=== PATIENT | male | born 1975 | race Caucasian/White ===

== ENCOUNTER 2020-03-29 14:50 | Emergency (ER) | payer BC ==
[2020-03-29] MEDS ORDERED: KETOROLAC 30 MG/ML 1ML VIAL As Ordered ONE (18:58)
[2020-03-29] MEDS ORDERED: KETOROLAC 30 MG/ML 1ML VIAL ONE (18:58)
[2020-05-05 16:09] LABS: APPEARANCE, URINE CLEAR (CLEAR); BACTERIA, URINE AUTO NEGATIVE (NEGATIVE); BILIRUBIN, URINE AUTO NEGATIVE (NEGATIVE); BLOOD, URINE BLOOD NEGATIVE (NEGATIVE); COLOR, URINE STRAW (YELLOW); GLUCOSE, URINE (UA) AUTO NEGATIVE (NEGATIVE); KETONE, URINE AUTO NEGATIVE (NEGATIVE); LEUKOCYTE ESTERASE, URINE AUTO NEGATIVE (NEGATIVE); MUCUS, URINE SMALL (NEGATIVE); NITRITE, URINE AUTO NEGATIVE (NEGATIVE); PROTEIN, URINE AUTO NEGATIVE (NEGATIVE); RBC, URINE AUTO 1 /HPF (0-3); SPECIFIC GRAVITY URINE AUTO 1.013 (1.002-1.035); SQUAMOUS EPITHELIAL CELL UR AU 0 /HPF (0-6); UROBILINOGEN, URINE AUTO 0.2 mg/dL (0.0-2.0); WBC, URINE AUTO 0 /HPF (0-3)
[2020-05-05 17:08] LABS: BASO % 0.3 % (0.0-1.0); EOS % 0.1 % (0.0-3.0); HEMATOCRIT 42.3 % (42.0-52.0); HEMOGLOBIN 14.2 g/dl (13.5-17.5); LYMPH # 0.5 10^3/uL (1.5-5.0); MEAN CORPUSCULAR HEMOGLOBIN 28.9 pg (27.0-33.0); MEAN CORPUSCULAR HGB CONC 33.6 g/dl (32.0-36.5); MEAN CORPUSCULAR VOLUME 86.2 fl (80.0-96.0); MONO # 0.3 10^3/uL (0.0-0.8); MONO % 3.3 % (0.0-5.0); NEUTROPHILS # 8.4 10^3/uL (1.5-8.5); NEUTROPHILS % 90.8 % (36.0-66.0); PLATELET COUNT, AUTOMATED 176 10^3/uL (150-450); RED BLOOD COUNT 4.91 10^6/uL (4.30-6.10); WHITE BLOOD COUNT 9.2 10^3/uL (4.0-10.0)
[2020-06-08 12:10] LABS: ALBUMIN 4.2 GM/DL (3.2-5.2); ALT/SGPT 43 U/L (12-78); BILIRUBIN,DIRECT 0.2 MG/DL (0.0-0.2); BILIRUBIN,TOTAL 0.6 MG/DL (0.2-1.0); BLOOD UREA NITROGEN 12 MG/DL (7-18); CALCIUM LEVEL 8.8 MG/DL (8.5-10.1); CARBON DIOXIDE LEVEL 30 MEQ/L (21-32); CHLORIDE LEVEL 107 MEQ/L (98-107); CREATININE FOR GFR 0.94 MG/DL (0.70-1.30); GLOMERULAR FILTRATION RATE > 60.0 (>60); GLUCOSE, FASTING 106 MG/DL (70-100); LIPASE 65 U/L (73-393); POTASSIUM SERUM 4.4 MEQ/L (3.5-5.1); SODIUM LEVEL 140 MEQ/L (136-145); TOTAL PROTEIN 7.1 GM/DL (6.4-8.2)
== END 2020-03-29 19:51 | disposition home or self-care (01) ==
LOC: M ED 14:50
DX: N13.39 Other hydronephrosis (principal); N20.0 Calculus of kidney; K21.9 Gastro-esophageal reflux disease without esophagitis; K44.9 Diaphragmatic hernia without obstruction or gangrene; A60.02 Herpesviral infection of other male genital organs; Z79.899 Other long term (current) drug therapy
CPT/HCPCS: 74176; 80048; 80076; 81001; 83690; 85025; 87086; 96361; 96374; 99283; J1885

== ENCOUNTER 2020-08-21 16:32 | Day surgery (SDC) | payer BC, SELFPAY ==
[~2020-08-21] VITALS: Ht 167.6 cm; Wt 88.0 kg
[2020-08-21] MEDS ORDERED: FISH1000 PO (16:41)
[2020-08-21] MEDS ORDERED: VALA500T5 PO (16:41)
[2020-08-21] MEDS ORDERED: LISI10TA4 PO (16:41)
[2020-08-21] MEDS ORDERED: NS 1,000 ML IV ONE (17:00)
[2020-08-21] MEDS ORDERED: MORPHINE 4 MG/ML 1ML VIAL/SYRINGE (J2270) IV ONE (17:00)
[2020-08-21 17:25] LABS: BASO % 0.3 % (0.0-1.0); EOS % 0.3 % (0.0-3.0); HEMOGLOBIN 14.6 g/dl (13.5-17.5); MEAN CORPUSCULAR HEMOGLOBIN 27.9 pg (27.0-33.0); MEAN CORPUSCULAR HGB CONC 32.4 g/dl (32.0-36.5); MEAN CORPUSCULAR VOLUME 85.9 fl (80.0-96.0); MONO # 0.7 10^3/uL (0.0-0.8); MONO % 6.5 % (0.0-5.0); NEUTROPHILS # 9.1 10^3/uL (1.5-8.5); NEUTROPHILS % 82.8 % (36.0-66.0); PLATELET COUNT, AUTOMATED 198 10^3/uL (150-450); RED BLOOD COUNT 5.24 10^6/uL (4.30-6.10)
[2020-08-21 17:36] LABS: ALBUMIN 4.4 GM/DL (3.2-5.2); ALT/SGPT 52 U/L (12-78); BILIRUBIN,DIRECT 0.1 MG/DL (0.0-0.2); BILIRUBIN,TOTAL 0.3 MG/DL (0.2-1.0); BLOOD UREA NITROGEN 19 MG/DL (7-18); CALCIUM LEVEL 8.8 MG/DL (8.5-10.1); CARBON DIOXIDE LEVEL 30 MEQ/L (21-32); CHLORIDE LEVEL 105 MEQ/L (98-107); CREATININE FOR GFR 0.85 MG/DL (0.70-1.30); GLOMERULAR FILTRATION RATE > 60.0 (>60); GLUCOSE, FASTING 105 MG/DL (70-100); LIPASE 72 U/L (73-393); SODIUM LEVEL 139 MEQ/L (136-145)
[2020-08-21] MEDS ORDERED: ISOVUE-370 76% 100ML VIAL As Ordered ONE (17:52)
--- NOTE | 2020-08-21 18:47 | REPVR ---
PROCEDURE INFORMATION: Exam: CT Abdomen And Pelvis With Contrast Exam date and time: 08/21/2020 6:00 PM Age: 45 years old Clinical indication: Abdominal pain; Additional info: Rlq abd pain TECHNIQUE: Imaging protocol: Computed tomography of the abdomen and pelvis with intravenous contrast. Radiation optimization: All CT scans at this facility use at least one of these dose optimization techniques: automated exposure control; mA and/or kV adjustment per patient size (includes targeted exams where dose is matched to clinical indication); or iterative reconstruction. Contrast material: ISO 370; Contrast volume: 100 ml; Contrast route: INTRAVENOUS (IV); COMPARISON: CT ABD PELVIS W/O CONTRAST 03/29/2020 4:26 PM FINDINGS: Liver: Normal. No mass. Gallbladder and bile ducts: Normal. No calcified stones. No ductal dilation. Pancreas: Normal. No ductal dilation. Spleen: Normal. No splenomegaly. Adrenal glands: Normal. No mass. Kidneys and ureters: Normal. No hydronephrosis. Stomach and bowel: Unremarkable. No obstruction. No mucosal thickening. Appendix: Appendix measures 9 mm with periappendiceal fat stranding. No fluid collections/abscess. Intraperitoneal space: Unremarkable. No free air. No significant fluid collection. Vasculature: Unremarkable. No abdominal aortic aneurysm. Lymph nodes: Unremarkable. No enlarged lymph nodes. Urinary bladder: Unremarkable as visualized. Reproductive: Unremarkable as visualized. Bones/joints: Unremarkable. No acute fracture. Soft tissues: Unremarkable. IMPRESSION: Acute appendicitis. No fluid collections/abscess. Electronically signed by: Renny Roman On 08/21/2020 18:47:22 PM
[2020-08-21] MEDS ORDERED: PIPERACILLIN/TAZOBACTAM SOD 3.375 GM in D5W MINI-BAG PLUS 50 ML IV ONE (19:00)
--- NOTE | 2020-08-21 19:41 | HPEPDOC ---
General Surgery H&P Date of Admission Aug 21, 2020 Attending Physician: DESI HEATH MD History and Physical CHIEF COMPLAINT: abdominal pain HISTORY OF PRESENT ILLNESS: Patient is a 45 M who presents to the ER this afternoon with one day history of lower abdominal pain. Patient reports that he felt well when he woke up this morning. Pain started roughly about a 13 the morning. He describes it as crampy associated bloating with no nausea or vomiting, diarrhea, fevers or chills. He thought this was just gas pain and infiltrated wait it out while at work. Pain did not subside and got mildly worse. He reports pain about 7 out of 10. After work he went to the emergency room. ALLERGIES: Please see below. HOME MEDICATIONS: Please see below. PAST MEDICAL HISTORY: 1. hypertension. 2. hyperlipidemia. PAST SURGICAL HISTORY: 1. hernia repair. - open repair with mesh PERSONAL/SOCIAL HISTORY: [Denies smoking, alcohol use, or recreational drug use]. REVIEW OF SYSTEMS: GENERAL: [Denies chills, fatigue, fever, weight gain and weight loss]. HEENT: Denies vision problems, hearing problems. NECK: [Denies any neck pain]. CARDIOVASCULAR: [Denies chest pain and palpitations]. MUSCULOSKELETAL: [Denies arthralgias, back pain and thrombophlebitis]. SKIN: [Denies rash]. NEUROLOGIC: [Denies headache, stroke and transient ischemic attack]. PSYCHIATRIC: [Denies anxiety and depression]. ENDOCRINE: [Denies thyroid disease]. HEMATOLOGY/ONCOLOGY: [Denies any bleeding or clotting disorder]. HEART: [Denies any chest pains, palpitations, paroxysmal dyspnea, orthopnea]. PULMONARY: [Denies chronic cough, dyspnea and wheezing]. GASTROINTESTINAL: [Denies rectal bleeding, family history of colon cancer, constipation, diarrhea, dysphagia, heartburn and jaundice]. GENITOURINARY: [Denies dysuria, frequency, hematuria and nocturia]. ENDOCRINE: [Denies polydipsia, polyphagia, polyuria, heat or cold intolerance]. INFECTIOUS: [Denies any recent upper respiratory tract infection, UTI, need for use of antibiotics]. NUTRITION: [Reports good appetite]. PHYSICAL EXAMINATION: VITAL SIGNS: Please see below. GENERAL APPEARANCE: Patient seen sitting up on the stretcher, relatively comfortable. [Awake, alert, oriented]. HEENT: [Normocephalic, atraumatic. [place] palpebral conjunctivae. Anicteric sclerae. Lips mildly dry]. CHEST: [No chest wall abnormalities. Normal respiratory motion/effort]. NECK: [Supple. No thyromegaly. No lymphadenopathies]. LUNGS: [Lung sounds are clear to auscultation bilaterally. No wheezing appreciated]. HEART: [No chest wall abnormalities. Heart rate and rhythm are regular with no murmurs]. ABDOMEN: Obese abdomen, minimally distended, soft. Mild tenderness over the right lower quadrant area with localized guarding, mild rebound. SKIN: Warm and dry. EXTREMITIES: [Extremities have no deformities. No edema identified]. NEUROLOGICAL: Awake, alert and oriented. ANCILLARIES: . LABORATORY DATA: Please see below. MICROBIOLOGY: Please see below. IMAGING: CT scan of the abdomen and pelvis shows dilated, inflamed appendix with mild periappendiceal stranding, no free fluid, no free air. IMPRESSION AND PLAN: Acute appendicitis with localized peritonitis Patient's history, symptoms, physical exam consistent with non-complicated appendicitis. His imaging shows mild appendiceal thickening not much phlegmon or signs of abscess formation. We'll bring him to the operating room for laparoscopic appendectomy. I explained to him how the procedure is performed, its risks and benefits. I discussed with the patient the details of the proposed procedure, the benefits of performing the procedure, the most common risks on doing the procedure. This may include risks of the general anesthesia, risk of bleeding, bowel injury, vascular injury, subsequent abscess formation, hernia formation. I have given him a chance to ask questions, voice out concerns. Patient has agreed to proceed. He received a dose of Zosyn 3.3 cm pounds heavy during his stay in the emergency room. We may need to continued this perioperatively depending on the state of the appendix once we are in the operating room. Vital Signs Vital Signs Date Time Temp Pulse Resp B/P (MAP) Pulse Ox O2 Delivery O2 Flow Rate FiO2 08/21/20 17:32 16 08/21/20 17:07 08/21/20 16:33 97.4 76 98 Room Air Laboratory Data Labs 24H Laboratory Tests 2 08/21/20 17:00: Immature Granulocyte % (Auto) 1.1, Neutrophils (%) (Auto) 82.8H, Lymphocytes (%) (Auto) 9.0L, Monocytes (%) (Auto) 6.5H, Eosinophils (%) (Auto) 0.3, Basophils (%) (Auto) 0.3, Neutrophils # (Auto) 9.1H, Lymphocytes # (Auto) 1.0L, Monocytes # (Auto) 0.7, Eosinophils # (Auto) 0.0, Basophils # (Auto) 0.0, Nucleated Red Blood Cells % (auto) 0.0, Urine Color YELLOW, Urine Appearance CLOUDYH, Urine pH 8.0, Urine Specific [place] 1.020, Urine Protein NEGATIVE, Urine Glucose (UA) NEGATIVE, Urine Ketones NEGATIVE, Urine Blood NEGATIVE, Urine Nitrite NEGATIVE, Urine Bilirubin NEGATIVE, Urine Urobilinogen 0.2, Urine Leukocyte Esterase NEGATIVE, Urine WBC (Auto) 0, Urine RBC (Auto) 3, Urine Hyaline Casts (Auto) 0, Urine Bacteria (Auto) NEGATIVE, Urine Squamous Epithelial Cells 0, Urine Amorphous Sediment SMALLH, Urine Mucus (Auto) SMALL, Urine Sperm (Auto) , Anion Gap 4L, Glomerular Filtration Rate > 60.0, Calcium Level 8.8, Total Bilirubin 0.3, Direct Bilirubin 0.1, Aspartate Amino Transf (AST/SGOT) 28, Alanine Aminotransferase (ALT/SGPT) 52, Alkaline Phosphatase 85, Total Protein 8.0, Albumin 4.4, Albumin/Globulin Ratio 1.2, Lipase 72L 08/21/20 19:21: CBC/BMP Laboratory Tests 08/21/20 17:00 Home Medications Scheduled Lisinopril (Lisinopril) 10 Mg Tablet, 10 MG PO DAILY, (Reported) Haskell-3 Fatty Acids/Fish Oil (Fish Oil 1,000 mg Capsule) 1 Each Capsule, 1,000 MG PO DAILY, (Reported) Valacyclovir HCl (Valacyclovir) 500 Mg Tablet, 500 MG PO DAILY, (Reported) Allergies Coded Allergies: No Known Allergies (Unverified , 08/21/20) A-FIB/CHADSVASC A-FIB History Current/History of A-Fib/PAF?: No Current PO Anticoag Therapy: DESI Maria MD Aug 21, 2020 19:41
[2020-08-21] MEDS ORDERED: propofoL 200 MG/20 ML VIAL As Ordered ONE ×2 (21:07→22:34)
[2020-08-21] MEDS ORDERED: dexameTHASONE 4 MG/ML 1ML VIAL (J1100 PER 1MG) As Ordered ONE (21:07)
[2020-08-21] MEDS ORDERED: fentaNYL 100 MCG/2 ML INJECTION (J3010) As Ordered ONE ×2 (21:07→22:38)
[2020-08-21] MEDS ORDERED: ONDANSETRON 4MG/2ML VIAL As Ordered ONE (21:07)
[2020-08-21] MEDS ORDERED: LIDOCAINE 2% 100MG/5ML SDV (FOR ANES.) As Ordered ONE (21:07)
[2020-08-21] MEDS ORDERED: MIDAZOLAM INJ 2MG/2ML VIAL (J2250 PER 1MG) As Ordered ONE (21:07)
[2020-08-21] MEDS ORDERED: ROCURONIUM BROMIDE 50 MG/5 ML VIAL As Ordered ONE (21:07)
[2020-08-21] MEDS ORDERED: LIDOCAINE 1% SDV 30ML VIAL As Ordered ONE (21:48)
[2020-08-21] MEDS ORDERED: BUPIVACAINE HCL 0.25% 30ML VIAL As Ordered ONE (21:48)
[2020-08-21] MEDS ORDERED: diphenhydrAMINE 50MG/ML VIAL (J1200) As Ordered ONE (22:13)
[2020-08-21] MEDS ORDERED: SUGAMMADEX SODIUM 500 MG/5 ML VIAL (BRIDION) As Ordered ONE (22:18)
[2020-08-21] MEDS ORDERED: ACETAMINOPHEN 1000MG 100ML IV BTL (OFIRMEV) (J0131 PER 10MG) As Ordered ONE (22:19)
[2020-08-21] MEDS ORDERED: KETOROLAC 60MG 2ML VIAL As Ordered ONE (22:22)
--- NOTE | 2020-08-21 22:57 | ROOPDOC ---
[facility] Report Of Operation Report of Operation DATE OF PROCEDURE: 08/21/20 PREPROCEDURE DIAGNOSES: acute appendicitis. POSTPROCEDURE DIAGNOSES: acute appendicitis. PROCEDURE: Laparoscopic appendectomy. SURGEON: Desi Sinha MD FINISHING RANGE FEEDER: ANESTHESIA: General Anesthesia. ESTIMATED BLOOD LOSS: Approximately 10 mL. COMPLICATIONS: none. REMARKS: 45 M with one day h/o rlq abdominal pain. PROCEDURE NOTE: acutel inflamed, distended appendix, mildly thickened mesoap pendix, no abscess, phlegmon, no perforation. DESCRIPTION OF PROCEDURE: Patient has been given a dose of Zosyn perioperatively.Patient was brought to the operating room, placed supine on the table. Sequential compression device placed for DVT prophylaxis. General endotracheal anesthesia started. The abdomen prepped and draped in usual sterile fashion. After a surgical timeout, we began our surgery Entry into the abdomen done through an incision at the LUQ are. He has a prior vertical suprapubic umbilical incision from a hernia repair which he thinks there might have been a mesh placed.. Veress needle inserted on a controlled fashion. Intra-abdominal placement confirmed with saline drop technique. CO2 insufflation started to a pressure of 15 mmHg. Using the same incision a 5 mm port was placed under direct vision of laparoscope. Insertion site was inspected for injury and none was found. He was placed on a Trendelenburg position the right side tilted to about 30 to allow for better visualization of the appendix. The area above the umbilicus does not demonstrate any presence of at least an intraperitoneal mesh unclear if he has mesh on top of the fascia. This a placed a 5 mm port to the left of the umbilicus and an 8 mm port at the suprapubic area. Operative findings: He has a moderately bulky omentum covering most of the bowels. Visible portions small bowel was then appeared dilated. He is a small amount of serous fluid on the right gutter. The appendix is located noted to be dilated, thickened but overall healthy with no signs of perforation. Mesentery is mildly thickened. Small amount of clear serous fluid on the right gutter. The appendix was grasped to pull the base of the appendix into view. The mesoappendix was divided using Harmonic scalpel down to the base. Two PDS Endoloops were placed to ligate the appendix at its base then divided with a Harmonic Scalpel the stump cauterized. Stump appears healthy. Appendix was then delivered into an Endo Catch bag through the 8 mm umbilical port site. . After re-insufflation the surgical site was inspected for hemostasis. Surrounding areas of the abdomen and inspected for fluid collections or signs of injury. I closed the 8 mm suprapubic port that I had to partially enlarged to take the appendix had a problem with a Christiano Valente device using a 0 Vicryl. The small amount of oozing out where the sutures passed through the Christiano Valente device went through but overall looked stable without any hematoma. The abdomen was deflated. All ports removed. All skin incisions closed with 4-0 Monocryl in a subcuticular fashion. Steri-Strips and gauze dressing used for wound coverage. Patient was promptly awake and extubated and brought to recovery room stable. All counts of sponges and instruments verified to be correct. DESI SINHA MD Aug 21, 2020 22:57
[2020-08-21] MEDS ORDERED: PERCOCET 5MG/325MG TAB PO PRN (23:00)
[2020-08-21] MEDS ORDERED: cefoTEtan INJ 1GM VIAL (S0074 PER 500MG) IM SCH (23:00)
[2020-08-21] MEDS ORDERED: KETOROLAC 30 MG/ML 1ML VIAL IV PRN ×2 (23:00→23:15)
[2020-08-21] MEDS ORDERED: oxyCODONE 5MG TAB PO PRN (23:15)
[2020-08-21] MEDS ORDERED: LR 1,000 ML IV SCH (23:15)
[2020-08-21] MEDS ORDERED: fentaNYL 100 MCG/2 ML INJECTION (J3010) IV PRN (23:15)
[2020-08-21] MEDS ORDERED: ONDANSETRON 4MG/2ML VIAL IV PRN (23:15)
[2020-08-22] VITALS (8 sets, daily range): BP systolic 118–144; BP diastolic 62–94
[2020-08-22] MEDS: LR 1,000 ML IV SCH ×2 (00:50→07:15)
[2020-08-22] MEDS ORDERED: cefoTEtan DISODIUM 1 GM in D5W MINI-BAG PLUS 50 ML IV SCH (01:00)
[2020-08-22 05:45] LABS: BASO % 0.1 % (0.0-1.0); HEMATOCRIT 41.2 % (42.0-52.0); HEMOGLOBIN 13.3 g/dl (13.5-17.5); LYMPH # 0.7 10^3/uL (1.5-5.0); LYMPH % 8.6 % (24.0-44.0); MEAN CORPUSCULAR HEMOGLOBIN 27.9 pg (27.0-33.0); MEAN CORPUSCULAR HGB CONC 32.3 g/dl (32.0-36.5); MEAN CORPUSCULAR VOLUME 86.4 fl (80.0-96.0); MONO # 0.4 10^3/uL (0.0-0.8); MONO % 4.3 % (0.0-5.0); NEUTROPHILS # 7.2 10^3/uL (1.5-8.5); NEUTROPHILS % 86.5 % (36.0-66.0); PLATELET COUNT, AUTOMATED 189 10^3/uL (150-450); RED BLOOD COUNT 4.77 10^6/uL (4.30-6.10); WHITE BLOOD COUNT 8.3 10^3/uL (4.0-10.0)
[2020-08-22 06:15] LABS: BLOOD UREA NITROGEN 15 MG/DL (7-18); CALCIUM LEVEL 8.5 MG/DL (8.5-10.1); CARBON DIOXIDE LEVEL 27 MEQ/L (21-32); CHLORIDE LEVEL 105 MEQ/L (98-107); CREATININE FOR GFR 1.21 MG/DL (0.70-1.30); GLOMERULAR FILTRATION RATE > 60.0 (>60); GLUCOSE, FASTING 148 MG/DL (70-100); POTASSIUM SERUM 4.6 MEQ/L (3.5-5.1); SODIUM LEVEL 138 MEQ/L (136-145)
[2020-08-22] MEDS ORDERED: lisinopriL 10 MG TAB PO SCH (09:00)
[2020-08-22] MEDS ORDERED: valACYclovir HCL 500 MG TAB PO SCH (09:00)
--- NOTE | 2020-08-22 09:49 | IPNPDOC ---
Text Note Date of Service The patient was seen on 08/22/20. NOTE Patient seen this morning was walking the hallways. Looks comfortable. Denies any abdominal pain. He ate breakfast today and tolerated without nausea. He has been afebrile postoperatively. On examination Patient looks comfortable Abdomen is round, soft, minimally distended. He has 3 port sites covered with gauze and Tegaderm which are all clean dry and intact. Nontender over the right lower quadrant, minimal tenderness over the suprapubic area. Impression and plan Acute appendicitis, postop day 1 laparoscopic appendectomy Okay to go home. No further need for antibiotics. Follow-up with me in 2 weeks. VS,Fishbone, I+O VS, Fishbone, I+O Laboratory Tests 08/21/20 17:00 08/22/20 05:24 Vital Signs Date Time Temp Pulse Resp B/P (MAP) Pulse Ox O2 Delivery O2 Flow Rate FiO2 08/22/20 08:01 98.6 78 18 124/67 (86) 94 Nasal Cannula 2.0 I&O- Last 24 Hours up to 6 AM 08/22/20 06:00 Intake Total 2050 ml Output Total 660 ml Balance 1390 ml DESI HEATH MD Aug 22, 2020 09:49
== END 2020-08-22 11:49 | disposition home or self-care (01) ==
LOC: M ED 16:32 → M SDC 21:10 → M PCU 08-22 00:03 → M SDC 08-22 11:49
PROVIDERS: ATTEND Surgery
DX: K35.80 Unspecified acute appendicitis (principal); I10 Essential (primary) hypertension; E78.5 Hyperlipidemia, unspecified; Z91.048 Other nonmedicinal substance allergy status
CPT/HCPCS: 36415; 44970; 74177; 80048; 80076; 81001; 83690; 85025; 88304; 96360; 96361; 96365; 96366; 96367; 96374; 99284; J0131; J1100; J1200; J1885; J2250; J2270; J2405; J2543; J3010; Q9967; U0002